=== PATIENT | female | born 1970 | race Two or more races ===

== ENCOUNTER 2020-12-31 13:29 | Inpatient (IN) | payer OTHER ==
[~2020-12-31] VITALS: Ht 165.1 cm; Wt 103.4 kg
[2020-12-31] MEDS ORDERED: NORVASC2.5 MG PO (17:47)
[2020-12-31] MEDS ORDERED: ATACAND32 MG PO (17:47)
[2020-12-31] MEDS ORDERED: DAFLO (17:48)
[2021-01-06] MEDS ORDERED: CANDESARTAN-HC1 EAC1 (13:34)
[2021-01-06] MEDS ORDERED: VITAMIN D31250 MCG (13:34)
[2021-01-06] MEDS ORDERED: ETODOLAC300 MG (13:34)
[2021-01-06] MEDS ORDERED: DAFLONEX-XL 11300 MG (13:34)
[2021-01-06] MEDS ORDERED: VENLAFAXINE HCL75 M1 (13:35)
[2021-01-08] MEDS ORDERED: HYOSCYAMINE0.125 M1 SL (08:02)
[2021-01-08] MEDS ORDERED: ULTRACET PO (08:02)
[2021-01-08] MEDS ORDERED: INTESTINEX680 M1 PO (08:03)
[2021-01-08] MEDS ORDERED: PROTONIX40 MG PO (08:03)
[2021-01-08] MEDS ORDERED: DICLOFENAC SODI75 MG PO (08:04)
== END 2021-01-08 12:40 | disposition home or self-care (01) | DRG 331 ==
LOC: O/R 01-04 10:02 → SURH 01-04 15:00
PROVIDERS: ADMIT Surgery; ATTEND Surgery
PROC: 0DBN4ZZ Excision of Sigmoid Colon, Percutaneous Endoscopic Approach (ICD-10-PCS; 2021-01-04)
PROC: 07TC4ZZ Resection of Pelvis Lymphatic, Percutaneous Endoscopic Approach (ICD-10-PCS; 2021-01-04)
PROC: 0DBP4ZZ Excision of Rectum, Percutaneous Endoscopic Approach (ICD-10-PCS; principal; 2021-01-04 16:40)
PROC: 3E0F7SF Introduction of Other Gas into Respiratory Tract, Via Natural or Artificial Opening (ICD-10-PCS; 2021-01-05)
PROC: 4A12X4Z Monitoring of Cardiac Electrical Activity, External Approach (ICD-10-PCS; 2021-01-05)
DX: D12.7 Benign neoplasm of rectosigmoid junction (principal); K62.1 Rectal polyp; I11.9 Hypertensive heart disease without heart failure; I73.89 Other specified peripheral vascular diseases; K21.9 Gastro-esophageal reflux disease without esophagitis; G47.39 Other sleep apnea